=== PATIENT | male | born 1985 | race Caucasian/White ===

== ENCOUNTER → 2018-03-09 | Outpatient (CLI) | payer OTHER | LOC: M RAD 15:02 | DX: M51.36 Other intervertebral disc degeneration, lumbar region (principal); M51.26 Other intervertebral disc displacement, lumbar region ==

== ENCOUNTER 2019-01-06 11:29 | Day surgery (SDC) | payer OTHER ==
[~2019-01-06] VITALS: Ht 170.2 cm; Wt 82.0 kg
[~2019-01-06 11:29] MED LIST: LR 1,000 ML IV ONE; MOBI15TA PO
[2019-01-06] MEDS ORDERED: fentaNYL 100 MCG/2 ML INJECTION (J3010) As Ordered ONE (12:02)
[2019-01-06] MEDS ORDERED: ONDANSETRON 4MG/2ML VIAL (J2405) As Ordered ONE (12:02)
[2019-01-06] MEDS ORDERED: MIDAZOLAM INJ 2 MG/2 ML VIAL (J2250) As Ordered ONE (12:02)
[2019-01-06] MEDS ORDERED: LIDOCAINE 2% INJ 100 MG/5 ML SDV (FOR ANES.) As Ordered ONE (12:02)
[2019-01-06] MEDS ORDERED: propofoL 200 MG/20 ML VIAL As Ordered ONE ×3 (12:02→13:38)
[2019-01-06] MEDS ORDERED: LIDOCAINE 2% MDV 20 ML VIAL As Ordered ONE (13:03)
[2019-01-06] MEDS ORDERED: BUPIVACAINE HCL 0.5% 10 ML VIAL As Ordered ONE (13:03)
[2019-01-06] MEDS ORDERED: KETAMINE HCL 200 MG/20 ML VIAL As Ordered ONE (13:34)
[2019-01-06] MEDS ORDERED: fentaNYL 100 MCG/2 ML INJECTION (J3010) IV PRN (14:00)
[2019-01-06] MEDS ORDERED: LR 1,000 ML IV SCH (14:00)
[2019-01-06] MEDS ORDERED: ONDANSETRON 4MG/2ML VIAL (J2405) IV PRN (14:00)
[2019-01-06] MEDS ORDERED: oxyCODONE 5MG TAB PO PRN (14:00)
[2019-01-06 14:49] VITALS: BP 130/81
--- NOTE | 2019-01-10 16:04 | ROOPDOC ---
[facility] Report Of Operation Report of Operation DATE OF PROCEDURE: 01/06/2019 PREOPERATIVE DIAGNOSES: Left lower extremity varicose veins. POSTOPERATIVE DIAGNOSES: Left lower extremity varicose veins. PROCEDURE: Left lower extremity varicose vein stab phlebectomy's with greater than 20 stab phlebectomy's. SURGEON: Dr. Lakshmi Rowe M.D. TECHNICAL APPLICATIONS SPECIALIST: None INDICATION: Patient is a 33-year-old male with injury to his knee who requires surgery on his knee and the patient has a large number of varicosities in the thigh knee and calf region. The orthopedic surgeon who will be performing the knee surgery has refused to perform the surgery until the varicose veins are removed. The patient notes that the varicose veins are painful and throb and ache occasionally but not to the point that he required any intervention until at this time when he needs his knee surgery. The procedure was described and explained to the patient in detail including drawing of pictures explaining and demonstrating the procedure and the pertinent anatomy. Risks, benefits and alternative treatment options were discussed with the patient. Benefits included but were not limited to reduction of venous hypertension, removal of painful varicose veins, prevention of the venous stasis ulceration and relief of symptoms. Alternative treatment options included but are not limited to no intervention with continued conservative management. Risks included but were not limited to infection, bleeding, ulceration of the skin overlying the ablated vein, also formation at the site of the stab phlebectomy of varicose veins, no relief of symptoms, no cosmetic improvement, hematoma formation, scarring and bruising of the skin, nerve injury with loss of sensation and/or motor function, end-stage renal failure requiring hemodialysis, anesthetic complications, allergic reaction and/or complication from prepping and draping materials, possible need for transfusion of blood products, cerebrovascular accident, myocardial infarction, pulmonary embolus, deep venous thrombosis, possible need for open surgical intervention, loss of limb, loss of life and poor outcome. Risks of not performing the procedure included but were not limited to continued pain, swelling and possible venous stasis ulceration formation. Patient's questions were answered. Patient voices understanding of these risks, benefits and alternative treatment options. Patient voices acceptance of the risks associated with the procedure and consents to proceed with greater saphenous vein radiofrequency ablation with stab phlebectomy of painful varicose veins. No promises or guarantees were made to the patient regarding the procedure outcome and results. ANESTHESIA: Local MAC IVF: 700 mL. ESTIMATED BLOOD LOSS: 50 mL. HEPARIN: None PROTAMINE: None COMPLICATIONS: None. DRAINS: None SPECIMENS: Left lower extremity varicose veins IMPLANTS: None FINDINGS: Patient had large varicose veins running and the inner thigh around the knee in the anterior and posterior regions and into the calf. DESCRIPTION OF PROCEDURE: Patient was taken to operating room, placed supine on the operating room table and the patient's left lower extremity was prepped and draped in a standard surgical fashion. A procedural time-out was then performed by myself and all the surgical team members in the room confirming the correct patient, procedure and laterality. The varicosities in the left lower extremity were marked in the preoperative holding area in the standing position. Stab phlebectomy of the varicosities in the left lower extremity was then performed with the stab phlebectomy sites closed with reva. Dressings were applied. Edmundo wrap was applied from the base of the toes to the inguinal region. All instrument, sponge and needle counts were correct at the end of the case. Dr. Rowe was present for and directed the entire case. There were no complications. Patient tolerated the procedure well. Patient was transferred to the recovery room extubated, awake, alert and in stable condition. The procedure was described and explained to the patient in the recovery area with all of his questions being answered. Ric Rowe MD Jan 10, 2019 10:32
== END 2019-01-06 15:40 | disposition home or self-care (01) ==
LOC: M SDC 11:29
PROVIDERS: ATTEND Surgery Vascular Surgery
DX: I83.812 Varicose veins of left lower extremity with pain (principal); M12.9 Arthropathy, unspecified; R06.83 Snoring
CPT/HCPCS: 37766; 88300; J2250; J2405; J3010